=== PATIENT | female | born 1945 | race Hispanic/Latino ===

== ENCOUNTER 2017-12-21 05:45 | Day surgery (SDC) | payer MEDICARE ==
[2012-09-24 23:46] VITALS: BMI 43.3
[2017-12-21] MEDS ORDERED: Midazolam 2 MG/2 ML VIAL ONE (07:33)
[2017-12-21] MEDS ORDERED: Propofol 10 mg/ml Inj (20 ML) ONE (07:33)
[2017-12-21] MEDS ORDERED: Succinylcholine Chloride 20 mg/ml Syr (5 ml) IV ONE (08:07)
[2017-12-21] MEDS ORDERED: HYDROmorphone 0.5 mg/0.5 ml ISec IVP PRN (09:03)
--- NOTE | 2017-12-21 09:04 | PCM.SURG1 ---
Surgeon's Initial Post Op Note - Surgeon's Notes Surgeon: Stephanie Aparicio mD Junior Java Developer: none Type of Anesthesia: General LMA Pre-Operative Diagnosis: Retained foreign body, pelvic pain, pelvis pressure, fibroids, lost IUD strings Operative Findings: no strings at cervical os, cervical stenosis dilated, hystersopyc with iud retained in anterior wall S shpaed, successfully removed, thickened white enodmetiral tissue removed Post-Operative Diagnosis: same as above Operation Performed: Hysterosopic removal of retained foreign body, myomecotmy, Dilation and currettage Specimen/Specimens Removed: endocervical currettings ,nedometiral currettins, retained foreign body Estimated Blood Loss: EBL {In ML}: 10 Blood Products Given: N/A Drains Used: No Drains Post-Op Condition: Good Date of Surgery/Procedure: 12/21/17 Time of Surgery/Procedure: 08:30
[2017-12-21 11:24] VITALS: BP 133/58; PULSE 78; RESP 20; TEMP 97.9; O2SAT 98
--- NOTE | 2017-12-21 20:09 | OP ---
Copied To: Stephanie Aparicio MD Attending MD: Stephanie Aparicio MD PROCEDURE DATE: 12/21/2017 SURGEON: Stephanie Aparicio MD ASSISTANTS: None. ANESTHESIA: General LMA. PREOPERATIVE DIAGNOSES: Retained foreign body, pelvic pain, pelvic pressure, fibroid/adhesions. OPERATIVE FINDINGS: No strings in the cervical os, cervical stenosis, dilated hysteroscopy with removal of retained foreign body, IUD embedded in the anterior wall, S-shaped, successfully removed. The hysteroscopic grasper and resection. Thick and white endometrial tissue removed. POSTOPERATIVE DIAGNOSES: Same as above. OPERATION PERFORMED: Hysteroscopic removal of foreign body, myomectomy, dilation of curettage. SPECIMEN REMOVED: Endocervical curettings, endometrial curettings, retained foreign body. ESTIMATED BLOOD LOSS: 10 mL. BLOOD PRODUCTS: None. COMPLICATIONS: None. DESCRIPTION OF PROCEDURE: The patient was taken to the operating room where she was given general anesthesia. Once it was found to be adequate, she was placed on the operating table in dorsal supine position with legs supported using stirrups. The patient was then prepped and draped in the usual sterile fashion. A time-out confirmed correct patient and correct procedure was then performed. Salgado retractor was placed on the anterior and posterior fornix of the vagina. There was a cystocele with a rectocele and also an external hemorrhoid noted. The cervix was adequately visualized. A single-tooth tenaculum was placed on the anterior lip of the cervix. There was no IUD strings visualized at the cervical os and the cervix was stenotic and dilated with cervical dilator and the IUD hook was then inserted to remove the IUD and it was unsuccessful. Following this, the cervix was sequentially dilated to allow for introduction of the hysteroscope under direction visualization using normal saline as the distention media. The retained foreign body was noted to be embedded within the anterior uterine wall. Hysteroscopic graspers were then used to help carefully resect it from the endometrium and there was good hemostasis noted, was grasped at the distal end and brought to the cervical os and expelled intact. Specimen was sent to Pathology. This was done after endocervical curettings were obtained. Following this, the hysteroscope was then reduced and there was white thickened proliferative endometrium that was noted that was curettaged and sent to Pathology on [facility]. All instruments were removed. There was good hemostasis at the tenaculum puncture site. At the end of the procedure, all needle, sponge, and instrument counts were noted and correct x2. The patient tolerated the procedure well and was transferred to the recovery room in stable condition. Stephanie Aparicio MD
== END 2017-12-21 12:10 | disposition home or self-care (01) ==
LOC: C.SDS 05:45
PROVIDERS: ATTEND Obstetrics & Gynecology
DX: D25.0 Submucous leiomyoma of uterus (principal); R10.2 Pelvic and perineal pain; T83.89XA Other specified complication of genitourinary prosthetic devices, implants and grafts, initial encounter; Y76.1 Therapeutic (nonsurgical) and rehabilitative obstetric and gynecological devices associated with adverse incidents; Z18.89 Other specified retained foreign body fragments; N88.2 Stricture and stenosis of cervix uteri; K64.4 Residual hemorrhoidal skin tags
CPT/HCPCS: 58561; 58562; 88300; 88305; J1885; J2001; J2250; J2405; J2704; J2765; J3010